=== PATIENT | female | born 1980 | race Caucasian/White ===

== ENCOUNTER → 2021-02-04 | Outpatient (CLI) | payer OTHER ==
[2021-02-04 20:43] LABS: T4, Free (Free Thyroxine) 1.18 ng/dL (0.800-1.800)
[2021-02-04 21:06] LABS: Progesterone 11.2 ng/mL
== END | disposition home or self-care (01) ==
LOC: LABWHC1 12:38
PROVIDERS: ATTEND Obstetrics & Gynecology
DX: Z13.29 Encounter for screening for other suspected endocrine disorder (principal); Z13.1 Encounter for screening for diabetes mellitus; N97.0 Female infertility associated with anovulation
CPT/HCPCS: 36415; 83036; 84144; 84439; 84443; 84479

== ENCOUNTER → 2021-03-17 | Outpatient (CLI) | payer OTHER ==
--- NOTE | 2021-03-17 15:33 | FL ---
EXAMINATION TYPE: FL hysterosalpingography DATE OF EXAM: 03/17/2021 CLINICAL HISTORY: Infertility. TECHNIQUE: Fluoroscopy-assisted hysterosalpingogram. Fluoroscopic guidance was provided during hyste rosalpingogram procedure performed by myself. A total of 35 seconds of fluoroscopic time was utilize d during the procedure and 11 spot images are acquired. COMPARISON: None. FINDINGS: Procedure was explained to patient. Benefits, alternatives, risks were discussed. Informed consent was obtained. Preprocedure maintenance repairman image shows no suspicious abnormality. Speculum was introduced utilizing sterile t echnique. Cervical os was cleansed with Betadine. Following this catheter is advanced through the cer vix and balloon is inflated. Under fluoroscopic guidance, approximately 5 cc of Isovue-200 was injected. There is good filling of the uterus which shows normal contour. There is good filling of the left fallopian tube with free spi llage, this appears within normal limits. Subsequently there is nonfilling of the right fallopian tub e with free spillage. Both appear within normal limits. At this point balloon is deflated and catheter was withdrawn. Speculum was removed. Patient tolerated procedure well without any immediate complication and than left radiology departmen t in stable and satisfactory condition. IMPRESSION: As above. Bilateral tubal patency documented.
== END | disposition home or self-care (01) ==
LOC: RADUSWWP 13:34
PROVIDERS: ATTEND Obstetrics & Gynecology
DX: N97.9 Female infertility, unspecified (principal)
CPT/HCPCS: 58340; 74740; Q9966